=== PATIENT | female | born 1960 | race African-American/Black ===

== ENCOUNTER 2020-03-06 12:06 | Observation (INO) ==
[~2020-03-06 12:06] MED LIST: *HR* OxyCODONE ER (12 HR) 10 MG TABLET PO ONE; Celecoxib 100 MG CAPSULE PO ONE; Total Joint Mixture (50 ml) INTRAART ONE
[2020-03-06] MEDS ORDERED: Ondansetron 4 MG/2 ML VIAL IVP PRN (12:36)
[2020-03-06] MEDS ORDERED: *HR* Promethazine 25 MG/ML VIAL IVP PRN ×2 (12:36→16:32)
[2020-03-06] MEDS ORDERED: *HR* OxyCODONE Immed Rel 5 MG TABLET PO PRN (12:36)
[2020-03-06] MEDS ORDERED: *HR* Labetalol 20 MG/4 ML SYRINGE IVP PRN (12:36)
[2020-03-06] MEDS ORDERED: CeFAZolin Syr 2,000MG/20 ML 2,000 MG/20 ML SYRINGE IVPB ONE (12:50)
[2020-03-06] MEDS ORDERED: Ringers Solution, Lactated 1,000 ML IVC SCH ×2 (13:00→16:32)
[2020-03-06] MEDS ORDERED: Lidocaine -MPF 2% 2 ML VIAL ONE (13:17)
[2020-03-06] MEDS ORDERED: Ethanol\\Acetic Acid\\Na Ace\\Ben 1,000 ML IRRIG.SOLN IR ONE (13:41)
[2020-03-06] MEDS ORDERED: *HR* FentaNYL (PF) 100 MCG/2 ML VIAL ONE (14:05)
[2020-03-06] MEDS ORDERED: *HR* PHENYLEPHRINE 1,000 MCG/10 ML SYRINGE IVP ONE (14:08)
[2020-03-06] MEDS ORDERED: Tranexamic Acid 1,000 MG/10 ML VIAL ONE ×2 (14:09)
[2020-03-06] MEDS ORDERED: Dexamethasone 4 MG/ML VIAL ONE (14:19)
[2020-03-06] MEDS ORDERED: Ondansetron 4 MG/2 ML VIAL ONE (14:19)
[2020-03-06] MEDS ORDERED: Vancomycin 1,000 MG VIAL ONE (14:24)
[2020-03-06] MEDS ORDERED: EPHEDrine 50 MG/ML VIAL ONE (14:24)
[2020-03-06] MEDS ORDERED: Ketorolac 30 MG/ML VIAL ONE (15:17)
[2020-03-06] MEDS: *HR* HYDROmorphone PF 0.5 MG/0.5 ML SYRINGE IVP PRN ×4 (15:30→15:50)
[2020-03-06 15:50] LABS: Hematocrit 32.3 % (35.3-44.9); Hemoglobin 10.8 g/dL (11.5-15.4)
[2020-03-06] MEDS ORDERED: ALPRAZolam 0.5 MG TABLET PO PRN (16:32)
[2020-03-06] MEDS ORDERED: *HR* Dextrose 50 % in Water (Syg) 50 ML SYRINGE IVP PRN (16:32)
[2020-03-06] MEDS ORDERED: D5% in Water 1,000 ML IVC PRN (16:32)
[2020-03-06] MEDS ORDERED: Sennosides 8.6 MG TABLET PO PRN (16:32)
[2020-03-06] MEDS ORDERED: Dextrose Gel 15 GM/37.5 ML TUBE PO PRN ×2 (16:32)
[2020-03-06] MEDS ORDERED: MOM Conc 10 ML UD.LIQ PO PRN (16:32)
[2020-03-06] MEDS ORDERED: Naloxone 0.4 MG/ML INJ IVP PRN (16:32)
[2020-03-06] MEDS: Insulin LISPRO 300 UNITS/3 ML VIAL SQ SCH ×2 (17:34→21:18)
[2020-03-06] MEDS: Gabapentin 300 MG CAPSULE PO SCH ×2 (21:09→21:18)
[2020-03-06] MEDS: CeFAZolin 2 GM/120 ML BAG IVPB SCH (21:16)
[2020-03-06] MEDS: Ascorbic Acid 500 MG TABLET PO SCH (21:16)
[2020-03-06] MEDS: *HR* OxyCODONE Immed Rel 5 MG TABLET PO PRN (21:18)
[2020-03-07] MEDS: Ondansetron 4 MG/2 ML VIAL IVP PRN ×2 (00:14→08:34)
[2020-03-07] MEDS: CeFAZolin 2 GM/120 ML BAG IVPB SCH (05:31)
[2020-03-07] MEDS: HYDROcodone BIT/Homatropine 5 MG TABLET PO PRN ×2 (05:32→20:37)
[2020-03-07 07:28] LABS: Basophils % 0.2 %; Eosinophils % 0.1 %; Hematocrit 31.2 % (35.3-44.9); Hemoglobin 10.3 g/dL (11.5-15.4); Immature Granulocytes % 0.4 % (0-4); Lymphocytes # 1.7 K/mcL (0.6-4.6); Lymphocytes % 15.3 %; Mean Corpuscular Hemoglobin 31.4 pg (28.0-33.3); Mean Corpuscular Volume 95.1 fL (83.0-100.0); Mean Platelet Volume 12.3 fL (9.4-12.4); Monocytes # 0.6 K/mcL (0.0-1.3); Monocytes % 5.4 %; Neutrophils # 8.6 K/mcL (1.6-8.9); Platelet Count 156 K/mcL (140-400); Red Blood Count 3.28 M/mcL (3.82-4.97); Red Cell Distribution Width 13.1 % (11.5-14.5); Segmented Neutrophils % 78.6 %
[2020-03-07 07:41] LABS: BUN/Creatinine Ratio 22 (6-26); Blood Urea Nitrogen 21 mg/dL (6-20); Calcium 8.6 mg/dL (8.6-10.3); Carbon Dioxide 27 mEq/L (23-29); Chloride 101 mEq/L (98-107); Glucose 152 mg/dL (70-105); Osmolality,Calculated 286 (280-300); Potassium 3.9 mEq/L (3.5-5.1); Sodium 135 mEq/L (136-145); eGFR For African Americans > 60 (> 60); eGFR For Non-African Americans > 60 (> 60)
[2020-03-07] MEDS: Ascorbic Acid 500 MG TABLET PO SCH ×2 (10:03→17:49)
[2020-03-07] MEDS: hydroCHLOROthiazide 25 MG TABLET PO SCH (10:03)
[2020-03-07] MEDS: Gabapentin 300 MG CAPSULE PO SCH ×3 (10:03→20:36)
[2020-03-07] MEDS: Multivit/Ca/Min/Fe/FA 1 TAB TABLET PO SCH (10:04)
[2020-03-07] MEDS: Insulin LISPRO 300 UNITS/3 ML VIAL SQ SCH ×4 (10:05→20:38)
[2020-03-07] MEDS: Aspirin Enteric Coated 81 MG Tablet PO SCH (12:48)
[2020-03-07] MEDS: *HR* OxyCODONE Immed Rel 5 MG TABLET PO PRN ×2 (12:51→23:18)
[2020-03-07] MEDS ORDERED: Ringers Solution, Lactated 1,000 ML IVC SCH (13:15)
[2020-03-07] MEDS: Ondansetron ODT 4 MG TAB.RAPDIS SL SCH ×2 (19:47→23:18)
[2020-03-08] MEDS: *HR* OxyCODONE Immed Rel 5 MG TABLET PO PRN (03:38)
[2020-03-08] MEDS: HYDROcodone BIT/Homatropine 5 MG TABLET PO PRN ×2 (05:19→08:45)
[2020-03-08 05:59] LABS: Basophils % 0.4 %; Eosinophils # 0.1 K/mcL (0.0-0.6); Hematocrit 28.2 % (35.3-44.9); Hemoglobin 9.3 g/dL (11.5-15.4); Immature Granulocytes % 0.4 % (0-4); Lymphocytes # 1.9 K/mcL (0.6-4.6); Lymphocytes % 24.2 %; Mean Corpuscular Hemoglobin 30.9 pg (28.0-33.3); Mean Corpuscular Volume 93.7 fL (83.0-100.0); Mean Platelet Volume 12.7 fL (9.4-12.4); Monocytes # 0.9 K/mcL (0.0-1.3); Monocytes % 11.6 %; Platelet Count 136 K/mcL (140-400); Red Blood Count 3.01 M/mcL (3.82-4.97); Red Cell Distribution Width 13.1 % (11.5-14.5); Segmented Neutrophils % 62.4 %
[2020-03-08 06:17] LABS: BUN/Creatinine Ratio 20 (6-26); Blood Urea Nitrogen 18 mg/dL (6-20); Calcium 8.4 mg/dL (8.6-10.3); Carbon Dioxide 29 mEq/L (23-29); Chloride 99 mEq/L (98-107); Glucose 111 mg/dL (70-105); Osmolality,Calculated 279 (280-300); Potassium 3.4 mEq/L (3.5-5.1); Sodium 133 mEq/L (136-145); eGFR For African Americans > 60 (> 60); eGFR For Non-African Americans > 60 (> 60)
[2020-03-08] MEDS ORDERED: Ringers Solution, Lactated 1,000 ML IVC ONE (08:42)
[2020-03-08] MEDS: Ascorbic Acid 500 MG TABLET PO SCH (08:44)
[2020-03-08] MEDS: Multivit/Ca/Min/Fe/FA 1 TAB TABLET PO SCH (08:44)
[2020-03-08] MEDS: Aspirin Enteric Coated 81 MG Tablet PO SCH (08:44)
[2020-03-08] MEDS: Gabapentin 300 MG CAPSULE PO SCH (08:45)
[2020-03-08] MEDS: Ondansetron ODT 4 MG TAB.RAPDIS SL SCH (08:45)
[2020-03-08] MEDS: hydroCHLOROthiazide 25 MG TABLET PO SCH (08:45)
[2020-03-08] MEDS: Insulin LISPRO 300 UNITS/3 ML VIAL SQ SCH (08:45)
[2020-03-08 12:56] VITALS: BP 106/65
== END 2020-03-08 12:20 | disposition home or self-care (01) ==
LOC: 3NENU 12:06 → SAMDAY 12:06 → 3NENU 16:20 → SAMDAY 03-08 12:20 → 3NENU 03-08 14:20
PROVIDERS: ADMIT Orthopaedic Surgery; ATTEND Orthopaedic Surgery